=== PATIENT | male | born 2000 | race Two or more races ===

== ENCOUNTER 2024-08-31 22:56 | Emergency (ER) | payer OTHER, SELFPAY ==
[2024-08-31 22:58] VITALS: BP 153/101
[2024-08-31 23:29] VITALS: BP 135/104
[2024-08-31 23:30] VITALS: BMI 27.6
--- NOTE | 2024-08-31 23:37 | ED.GENMED ---
History of Present Illness
General
Chief Complaint: Blood and Body Fluid Exposure
Source: patient
Exam Limitations: none
Time Seen by Provider: 08/31/24 23:24
History of Present Illness
History of Present Illness:
This is a 23 year old male that comes in with c/o needle stick. States that he was working up stairs on [address] and he pulled out a butterfly and the needle went through his glove and slightly into the palm of his left hand. States that his Tetanus
is up to day. Denies any other complaints.
Past History
Past History
ED Past Medical History: Asthma; Negative HTN, Hypercholesterolemia or NIDDM
ED Past Surgical History: None
Social History
Tobacco: Non-smoker
Alcohol: Occasional
Personal: Single
Living: with family
Employment: Employed
Review of Systems
Review of Systems
All Other Systems: ROS reviewed and negative except as documented in HPI and ROS
Constitutional: Reports no symptoms
EENT: Reports no symptoms
Respiratory: Reports no symptoms
Cardiac: Reports no symptoms
ABD/GI: Reports no symptoms
: Reports no symptoms
Musculoskeletal: Reports no symptoms
Skin: Reports other (Needle stick left palm)
Neurological: Reports no symptoms
Psychiatric: Reports no symptoms
Phy Exam
General Physical Exam
General Presentation: well appearing and no apparent distress
General age: appears stated age
General Skin: warm and dry
General Habitus: normal
General Mental: alert
General Hydration: appears well hydrated
ENT Exam
ENT Exam: TM's normal, pharynx normal and neck supple
Eye Exam
Eye Exam: EOMI
Cardiovascular Exam
Cardiovascular Exam: regular rate/rhythm, no edema and no murmur
Pulmonary Exam
Pulmonary Exam: lungs clear, no respiratory distress, no rales, chest non tender, no crackles, no rhonchi, no wheezing and no cough
Musculoskeletal Exam
Musculoskeletal Exam: full ROM
Skin Exam
Skin Exam: normal color, warm/dry, no rash, no petechia and other (Unable to see the site of the needle stick. Negative for any redness. )
Psychiatric Exam
Psychiatric Exam: normal mood/affect
Course
Orders/Labs/Results
Orders:
Orders
08/31/24 23:32
HIV Combo Urgent
Hepatitis B Surface Antibody Urgent
Hepatitis B Surface Antigen Urgent
Hepatitis C Antibody Urgent
Vital Signs
Initial and Last Documented VS:
Initial Vital Signs
Temp Pulse Resp BP Pulse Ox
98.4 F 83 18 153/101 100
08/31/24 22:58 08/31/24 22:58 08/31/24 22:58 08/31/24 22:58 08/31/24 22:58
Last Documented Vital Signs
Temp Pulse Resp BP Pulse Ox
98.4 F 83 18 135/104 98
08/31/24 22:58 08/31/24 22:58 08/31/24 22:58 08/31/24 23:29 08/31/24 23:32
MDM/Problems Addressed
Differential Diagnosis Includes:
Needle stick,
MDM/Problems Addressed:
This is a 23 year old male that comes in with c/o a needle stick when working up stairs [address]. States that he pulled out the butterfly needle and the needle went through his glove and slightly into his palm.
Will check labs and have patient follow up with Occupational health. Patient to speak with the [employer] about getting the source patient tested.
Chronic conditions affecting care:
NA
Acute Exacerbation and/or Progression of Chronic Illness:
NA
*Pulse Oximetry
Patient hypoxic: no
*EKG
Interpreted by ED Provider?: NA
Rate: EKG- N/A
*Cell[employer] Helper Interpretation
Rate: Cell[employer] Insulation Helper- N/A
*Critical Care Note
Total Time (30-74mins, 75-104mins- exclusive of procedures): Not Applicable
ED Attending Note
-
Portions of this chart may have been created with voice recognition software.� Occasional wrong word or��sound alike� substitutions may have occurred due to the inherent limitations of voice recognition software.
Discharge Plan
Departure
Disposition: Home (Routine Discharge)
Date of Disposition: 08/31/24
Time of Disposition: 23:47
Patient with high blood pressure during this ER visit?: Yes
Condition: Good
Covid-19: Not Applicable
Discharge Problem:
Exposure to blood or body fluid
Instructions: Blood or body fluid exposure
Forms: Bl/Fluid Consent/Declination, Blood Body/Fluid Exposure
Additional Instructions:
As discussed, this is a low risk needle stick. You have had blood work drawn and you will need to follow up with Occupational health. IF YOU HAVE ANY OTHER CONCERNS PLEASE RETURN TO THE EMERGENCY ROOM.
Interventions
Interventions:
*Risk Screen - Suicide Last Done: 08/31/24 22:58
*General Assessment Last Done: 08/31/24 22:58
*Neglect/Abuse Screening Last Done: 08/31/24 22:58
ED- Fall Risk Assessment Last Done: 08/31/24 23:32
*ED COVID-19 Vaccine History Last Done: 08/31/24 23:32
ED-EENT Assessment Last Done: 08/31/24 23:32
ED-Skin Assessment Last Done: 08/31/24 23:32
Discharge Date and Time
Print Language: FRENCH
[2024-09-01 03:04] LABS: Hepatitis B Surface Antigen Negative (Negative)
[2024-09-01 03:14] LABS: HIV Combo Negative (Negative)
[2024-09-01 03:21] LABS: Hepatitis B Surface Antibody Negative; Hepatitis C Antibody Negative (Negative)
== END 2024-09-01 | disposition home or self-care (01) ==
LOC: EMR 22:56
PROVIDERS: Emergency Medicine; EMERGENCY PHYSICIAN Emergency Medicine
DX: Z77.21 Contact with and (suspected) exposure to potentially hazardous body fluids (principal); S61.432A Puncture wound without foreign body of left hand, initial encounter; W46.0XXA Contact with hypodermic needle, initial encounter; Y99.0 Civilian activity done for income or pay; R03.0 Elevated blood-pressure reading, without diagnosis of hypertension
CPT/HCPCS: 99283; 86706; 86803; 87340; 87389

== ENCOUNTER → 2024-10-01 15:05 | Outpatient (REF) | payer OTHER, SELFPAY ==
[2024-10-01 20:23] LABS: Hepatitis B Surface Antibody Positive
== END ==
LOC: REG 15:05
PROVIDERS: ATTENDING PHYSICIAN Nurse Practitioner Family
DX: Z23 Encounter for immunization (principal)
CPT/HCPCS: 36415; 86706